=== PATIENT | male | born 1955 | race Two or more races ===

== ENCOUNTER 2017-04-13 09:52 | Day surgery (SDC) | payer OTHER ==
[2017-04-13] MEDS ORDERED: MIDAZOLAM 1 MG/ML 2 ML INJ ×2 (10:47→10:48)
[2017-04-13] MEDS ORDERED: FENTAnyl 50 MCG/ML VIAL (10:48)
== END 2017-04-13 15:19 | disposition home or self-care (01) ==
LOC: GIL 09:52
DX: Z12.11 Encounter for screening for malignant neoplasm of colon (principal); K64.8 Other hemorrhoids; K64.4 Residual hemorrhoidal skin tags; I10 Essential (primary) hypertension
CPT/HCPCS: 45378